=== PATIENT | male | born 1980 | race Caucasian/White ===

== ENCOUNTER 2017-04-20 07:01 | Emergency (ER) | payer SELFPAY ==
--- NOTE | 2017-04-20 07:14 | ED.PDOC ---
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 Timing/Duration: getting worse, other - see hpi Improving Factors: nothing Worsening Factors: nothing Associated Symptoms: other - see hpi Allergies/Adverse Reactions: Allergies NO KNOWN ALLERGY Allergy (Verified 04/20/17 07:18) Home Medications: Ambulatory Orders Azithromycin [Zithromax Z-Cleve] 1 ea PO DAILY #1 pack 04/20/17 Benzonatate Perles [Tessalon Perles] 200 mg PO BID #30 cap 04/20/17 Review of Systems - Review of Systems Constitutional: States: no symptoms reported EENTM: States: see HPI Respiratory: States: see HPI Cardiology: States: no symptoms reported Gastrointestinal/Abdominal: States: no symptoms reported All other Systems: Reviewed and Negative, No Change from Baseline Past Medical History (General) - Patient Medical History Hx of COPD: Yes - dad Hx Congestive Heart Failure: No Hx Diabetes: Yes - mom Hx Cancer: No Surgical History: other - GI surgery correction of congenital defect - Social History Hx Tobacco Use: Yes - quit 1 week ago Hx Alcohol Use: Yes - drinks a 6 pack a night Hx Substance Use: No Hx Substance Use Treatment: No Hx Depression: No Family Medical History - Family History Father Family History: No Known Living Status: Still Living Physical Exam - Physical Exam General Appearance: Alert, Comfortable, No apparent distress Eye Exam: bilateral normal Ears, Nose, Throat: hearing grossly normal, nasal congestion, pharyngeal erythema Neck: full range of motion, supple Respiratory: lungs clear, normal breath sounds, no accessory muscle use Cardiovascular/Chest: normal peripheral pulses, regular rate, rhythm, no murmur Peripheral Pulses: radial,right: 2+, radial,left: 2+ Gastrointestinal/Abdominal: non tender, soft, no organomegaly Back Exam: no CVA tenderness, no vertebral tenderness Extremity: normal inspection, no pedal edema, no calf tenderness Neurologic: alert, normal mood/affect, oriented x 3 Skin Exam: normal color, warm/dry Lymphatic: no adenopathy Progress - Progress Progress: 04/20/17 07:23 Last Vital Signs Temp 100.0 F H 04/20/17 07:10 Pulse 104 H 04/20/17 07:10 Resp 20 04/20/17 07:10 BP 156/82 04/20/17 07:10 Pulse Ox 95 04/20/17 07:10 04/20/17 07:49 Laboratory Tests 04/20/17 07:18 Group A Strep DNA Negative Departure - Departure Clinical Impression: Nasopharyngitis acute Time of Disposition: 07:50 Disposition: Discharge to Home or Self Care Condition: Good Departure Forms: ED Discharge - Pt. Copy, Patient Portal Self Enrollment Instructions: DI for Common Cold, Common Cold (Alternative Therapy), Common Cold, Complementary Therapies for the Common Cold Prescriptions: Azithromycin [Zithromax Z-Cleve] 1 ea PO DAILY #1 pack Benzonatate Perles [Tessalon Perles] 200 mg PO BID #30 cap Home Medications: Ambulatory Orders Azithromycin [Zithromax Z-Cleve] 1 ea PO DAILY #1 pack 04/20/17 Benzonatate Perles [Tessalon Perles] 200 mg PO BID #30 cap 04/20/17 Additional Instructions: May take the following over the counter medications-Benadryl 1-2 capsule am /pm for cough and congestion;Aleve 1-2 tabs am /pm for fever and body aches and achy throat keep well hydrated Use nasal saline spray for nasal congestion as needed
[2017-04-20 08:10] VITALS: BP 123/78; TEMP 100.7; O2SAT 97
== END 2017-04-20 08:10 | disposition home or self-care (01) ==
LOC: ER 07:01
DX: J00 Acute nasopharyngitis [common cold] (principal); Z87.891 Personal history of nicotine dependence